=== PATIENT | female | born 1985 | race Caucasian/White ===

== ENCOUNTER 2016-11-26 21:04 | Emergency (ER) | payer OTHER ==
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
[~2016-11-26 21:04] MED LIST: AMITRYPTYLINE PO; AMOXICILLIN PO; AUGMENTIN875 MG PO; BACTRIM DS TABL1 TAB PO; CLEOCIN PO; DARVOCET-N 1001 TAB PO; DIAZEPAM PO; ERYTHROMYCIN O3.5 G1 OD; FLEXERIL10 M1 PO; KEFLEX PO; LORTAB 10-5001 EACH PO; LORTAB 10/500 T1 TAB PO; NAPROXEN PO; NICOTINE T1 PATCH .2 TOP; NO MEDICATIONS; PERCOCET5/325 PO; PROTONIX PO; SKELAXIN PO; ULTRAM PO; VICODIN 5/1 TAB 5/50 PO; VICODIN 5/500 T1 TAB PO; VOLTAREN75 MG PO; XANAX1 MG PO; ZESTRIL10 MG PO; [UNRECOGNIZED DRUG - OTHER] TOP
== END 2016-11-26 23:25 | disposition home or self-care (01) ==
LOC: SED 21:04
DX: S13.4XXA Sprain of ligaments of cervical spine, initial encounter (principal); S33.5XXA Sprain of ligaments of lumbar spine, initial encounter; S23.3XXA Sprain of ligaments of thoracic spine, initial encounter; S60.812A Abrasion of left wrist, initial encounter; I10 Essential (primary) hypertension; F41.9 Anxiety disorder, unspecified; F17.210 Nicotine dependence, cigarettes, uncomplicated; V49.40XA Driver injured in collision with unspecified motor vehicles in traffic accident, initial encounter
CPT/HCPCS: 70450; 72072; 72100; 72125; 73502; 99284

== ENCOUNTER 2017-02-17 13:31 | Emergency (ER) | payer OTHER ==
[2017-02-17 14:53] LABS: BASOPHIL# 0.1 X10e3 (0-0.3); BASOPHIL% 1.1 % (0-2.5); DIFF IND NO; EOSINOPHIL% 0.3 % (0.0-7.0); HEMATOCRIT 36.1 % (35.0-45.0); HEMOGLOBIN 11.7 gm/dL (12.0-16.0); LYMPHOCYTE# 1.9 X10e3 (1.0-3.5); LYMPHOCYTE% 23.8 % (17.0-45.0); MEAN CELL VOLUME 83.5 FL (83-96); MEAN CORPUSCULAR HEMOGLOBIN 27.1 PG (28-34); MEAN CORPUSCULAR HGB CONC 32.5 g/dL (30-36); MEAN PLATELET VOLUME 8.2 FL (6.5-11.5); MONOCYTE# 0.7 X10e3 (0-1.0); MONOCYTE% 8.6 % (3.0-12.0); NEUTROPHIL# 5.2 X10e3 (1.5-7.1); NEUTROPHIL% 66.2 % (40-75); PLATELET COUNT 226 X10e3 (140-420); RED BLOOD COUNT 4.33 X10e (3.90-5.30); RED CELL DISTRIBUTION WIDTH 17.6 % (11.0-15.5); WHITE BLOOD COUNT 7.9 X10e3 (4.0-10.5)
[2017-02-17 15:09] LABS: URINE SOURCE CLEAN CATCH
[2017-02-17 15:12] LABS: URINE APPEARANCE SL CLOUDY; URINE BLOOD NEG (NEG); URINE COLOR YELLOW; URINE GLUCOSE NEG (NORM); URINE KETONE NEG (NEG); URINE LEUKOCYTE ESTERASE TRACE (NEG); URINE NITRATE NEG (NEG); URINE PH 5.5 (5-8); URINE PROTEIN TRACE (NEG); URINE SPECIFIC GRAVITY >=1.030 (1.003-1.035); URINE UROBILINOGEN 0.2 MG/DL (NORM)
[2017-02-17 15:14] LABS: ALBUMIN SERUM 4.6 g/dL (3.5-5.0); ALKALINE PHOSPHATASE 57 U/L (32-92); ALT (SGPT) 16 U/L (10-40); AST (SGOT) 23 U/L (10-42); BILIRUBIN, DIRECT 0.2 mg/dL (0.0-0.2); BILIRUBIN,INDIRECT 0.5 mg/dL (0.0-0.9); BILIRUBIN,TOTAL 0.7 mg/dL (0.2-2.0); BLOOD UREA NITROGEN 20 mg/dL (9-23); BUN/CREATININE RATIO 18.18; CALCIUM SERUM 9.4 mg/dL (8.4-10.2); CARBON DIOXIDE 25 mmol/L (22-31); CHLORIDE 105 mmol/L (100-111); CREATININE SERUM 1.1 mg/dL (0.6-1.4); GLOM FILT RATE Estimated 67.3 mL/min (>60); GLUCOSE FASTING 81 mg/dL (70-110); POTASSIUM 3.2 mmol/L (3.5-5.1); SODIUM 139 mmol/L (135-145)
[2017-02-17 15:16] LABS: MICRO INDICATED? YES; URINE BILIRUBIN NEG (NEG)
[2017-02-17 15:23] LABS: ALCOHOL BLOOD <5 mg/dL ([, 0])
[2017-02-17 15:24] LABS: AMPHETAMINE POS (NEG); BARBITURATES NEG (NEG); BENZODIAZEPINES POS (NEG); COCAINE NEG (NEG); MARIJUANA NEG (NEG); OPIATES NEG (NEG); TRICYCLIC ANTIDEPRESSANTS NEG (NEG); U METHADONE NEG (NEG)
[2017-02-17 15:27] LABS: URINE RBC 0-2 /[HPF] (0-2)
[2017-02-17 15:28] LABS: URINE BACTERIA 4+ (NEG); URINE MUCUS PRESENT; URINE SQUAMOUS EPITHELIAL CELL OCCAS /[HPF]; URINE WBC 25-50 /[HPF] (0-5)
== END 2017-02-17 18:30 | disposition home or self-care (01) ==
LOC: SED 13:31
PROVIDERS: Emergency Medicine
DX: N39.0 Urinary tract infection, site not specified (principal); L02.413 Cutaneous abscess of right upper limb; I10 Essential (primary) hypertension; F15.10 Other stimulant abuse, uncomplicated
CPT/HCPCS: 10060; 36415; 80048; 80076; 80307; 81003; 84703; 85025; 96374; 99283; G0480; J2060